=== PATIENT | female | born 1970 | race Caucasian/White ===

== ENCOUNTER 2017-08-31 14:35 | Inpatient (IN) | payer OTHER ==
[~2017-08-31] VITALS: Ht 157.5 cm; Wt 93.9 kg
[2017-08-31 15:11] LABS: BASOPHIL % 1.6 % (0-2); PLATELET COUNT 367 x10^3mcL (130-400)
[2017-08-31 15:12] LABS: RED CELL DISTRIBUTION WIDTH 15.4 % (11.5-14.5)
[2017-08-31 15:30] LABS: CALCIUM 8.9 mg/dL (8.5-10.1); CARBON DIOXIDE 21.9 mmol/L (21-32); CHLORIDE SERUM 100 mmol/L (98-107); CREATININE SERUM 0.8 mg/dL (0.6-1.0); GFR1 > 60 mL/min; GLUCOSE SERUM 140 mg/dL (74-106); POTASSIUM SERUM 3.4 mmol/L (3.5-5.1); SODIUM SERUM 135 mmol/L (136-145)
[2017-08-31 15:35] LABS: ALBUMIN 3.5 g/dL (3.4-5.0); ALKALINE PHOSPHATASE 67 U/L (46-116); ALT/SGPT 20 U/L (14-59); AST/SGOT 19 U/L (15-37); BILIRUBIN TOTAL 0.4 mg/dL (0.20-1.00); TOTAL PROTEIN, SERUM 7.5 g/dL (6.4-8.2)
[2017-08-31 17:13] LABS: MAGNESIUM 1.9 mg/dL (1.8-2.4); PHOSPHOROUS 2.6 mg/dL (2.5-4.9)
[2017-08-31 17:15] LABS: CHOLESTEROL/HDL RATIO 8.9
[2017-08-31 17:20] VITALS: BP 137/74
[2017-08-31 17:22] LABS: FREE T4 1.17 ng/dL (0.76-1.46); FREE THYROXINE INDEX 3.3 ug/dL (1.4-4.5); T4(THYROXINE) 9.7 ug/dL (4.7-13.3)
[2017-08-31] MEDS ORDERED: ATORVASTATIN CA40 M1 PO (17:26)
[2017-08-31] MEDS ORDERED: METFORMIN HCL500 MG PO (17:26)
[2017-08-31 18:23] LABS: microscopic required? YES; urine erythrocyte TRACE (NEGATIVE)
[2017-08-31 18:36] LABS: T3 TOTAL 0.99 ng/mL
[2017-08-31 18:39] LABS: AMPHETAMINE QUAL UR NONE DETECTED (NEG <=1000)
[2017-08-31 19:21] LABS: TOTAL IRON BINDING CAPACITY 342 ug/dL (250-450)
[2017-08-31 19:26] LABS: RED BLOOD CELLS 4.12 M/mm3 (4.10-5.10)
[2017-08-31 19:28] LABS: IRON 30 ug/dL (50-170)
[2017-08-31 22:22] VITALS: BP 120/54
[2017-09-01 05:57] VITALS: BP 113/55
[2017-09-01 06:14] LABS: BASOPHIL % 0.7 % (0-2); PLATELET COUNT 335 x10^3mcL (130-400)
[2017-09-01 06:54] LABS: RED CELL DISTRIBUTION WIDTH 15.2 % (11.5-14.5)
[2017-09-01 07:38] LABS: CALCIUM 8.7 mg/dL (8.5-10.1); CARBON DIOXIDE 25.3 mmol/L (21-32); CHLORIDE SERUM 106 mmol/L (98-107); CREATININE SERUM 0.8 mg/dL (0.6-1.0); GFR1 > 60 mL/min; GLUCOSE SERUM 87 mg/dL (74-106); MAGNESIUM 2.1 mg/dL (1.8-2.4); PHOSPHOROUS 3.9 mg/dL (2.5-4.9); POTASSIUM SERUM 4.3 mmol/L (3.5-5.1); SODIUM SERUM 137 mmol/L (136-145)
[2017-09-01 08:10] VITALS: BP 109/56
[2017-09-01 09:56] VITALS: Ht 157.5 cm; Wt 93.9 kg
[2017-09-01 10:59] VITALS: BP 109/56
== END 2017-09-01 12:30 | disposition home or self-care (01) | DRG 243 ==
LOC: ED 14:35 → DU 16:03
PROVIDERS: Emergency Medicine; Family Medicine
DX: K21.9 Gastro-esophageal reflux disease without esophagitis (principal); G90.8 Other disorders of autonomic nervous system; E78.00 Pure hypercholesterolemia, unspecified; M94.0 Chondrocostal junction syndrome [Tietze]; E78.5 Hyperlipidemia, unspecified; R07.89 Other chest pain; I16.0 Hypertensive urgency; E87.6 Hypokalemia; R31.9 Hematuria, unspecified; D64.9 Anemia, unspecified; Z83.42 Family history of familial hypercholesterolemia
CPT/HCPCS: 82962; 83880; 84439; J0780; J1200; J1885; J3010; J7030; Q0092

== ENCOUNTER 2018-11-13 19:36 | Emergency (ER) | payer OTHER ==
[~2018-11-13] VITALS: Ht 157.5 cm; Wt 88.5 kg
[~2018-11-13 19:36] MED LIST: ATORVASTATIN CA40 M1 PO; METFORMIN HCL500 MG PO
[2018-11-13 20:14] VITALS: Ht 157.5 cm; Wt 88.5 kg
[2018-11-13 23:54] VITALS: BP 138/85
== END 2018-11-13 23:54 | disposition home or self-care (01) ==
LOC: ED 19:36
DX: N12 Tubulo-interstitial nephritis, not specified as acute or chronic (principal); E78.00 Pure hypercholesterolemia, unspecified; E11.9 Type 2 diabetes mellitus without complications
CPT/HCPCS: J1885; Q0162

== ENCOUNTER 2019-12-19 15:22 | Emergency (ER) | payer OTHER | END 2019-12-19 16:32 | disposition left against medical advice (07) | LOC: ED 15:22 | DX: Z53.21 Procedure and treatment not carried out due to patient leaving prior to being seen by health care provider (principal) ==

== ENCOUNTER 2019-12-21 23:04 | Emergency (ER) | payer OTHER ==
[~2019-12-21] VITALS: Ht 157.5 cm; Wt 81.8 kg
[2019-12-21 23:15] VITALS: Ht 157.5 cm; Wt 81.8 kg
[2019-12-22 00:03] LABS: BASOPHIL % 0.7 % (0-2); PLATELET COUNT 378 x10^3mcL (130-400)
[2019-12-22 00:39] LABS: microscopic required? YES; urine erythrocyte TRACE (NEGATIVE)
[2019-12-22 00:40] LABS: CALCIUM 8.8 mg/dL (8.5-10.1); CARBON DIOXIDE 34.2 mmol/L (21-32); CREATININE SERUM 1.3 mg/dL (0.6-1.0); POTASSIUM SERUM 3.5 mmol/L (3.5-5.1)
[2019-12-22 00:47] LABS: BILIRUBIN TOTAL 0.2 mg/dL (0.20-1.00); TOTAL PROTEIN, SERUM 7.2 g/dL (6.4-8.2)
[2019-12-22 00:48] LABS: ALBUMIN 3.2 g/dL (3.4-5.0)
[2019-12-22 03:31] VITALS: BP 144/79
== END 2019-12-22 03:31 | disposition home or self-care (01) ==
LOC: ED 23:04
PROVIDERS: Emergency Medicine
DX: R10.32 Left lower quadrant pain (principal); R10.13 Epigastric pain; E11.9 Type 2 diabetes mellitus without complications; E78.00 Pure hypercholesterolemia, unspecified; Z98.890 Other specified postprocedural states
CPT/HCPCS: J1885; Q0092; Q0162